=== PATIENT | female | born 1970 | race Two or more races ===

== ENCOUNTER → 2018-03-09 | Outpatient (CLI) | payer BC ==
--- NOTE | 2018-03-09 16:42 | MR ---
EXAMINATION TYPE: MR cervical spine wo/w con DATE OF EXAM: 03/09/2018 COMPARISON: None HISTORY: Myelopathy, numbness in extremities TECHNIQUE: Multiplanar, multisequence images of the cervical spine were acquired utilizing 7.5 mL intravenous Ga davist gadolinium contrast. Diffusion weighted imaging was performed. C2-C3: No evidence for degenerative disc disease. No disc bulge/herniation or protrusion. No Canal stenosis. Foramina are patent bilaterally. C3-C4: No significant foraminal encroachment. Posterior disc bulge causes mild anterior mass effect o n the thecal sac and possibly contacting the anterior cervical cord, mild to moderate central canal s tenosis. C4-C5: There is moderate central canal stenosis. Posterior extension endplate disc complex contacts a nterior cervical cord. Hypertrophic changes cause bilateral foraminal encroachment. C5-C6: Moderate to severe central canal stenosis. Posterior extension endplate disc complex causes ma ss effect on the cervical cord, hypertrophic changes cause bilateral foraminal encroachment. C6-C7: Posterior extension of endplate disc complex results in anterior mass effect on the thecal sac , posterior disc bulges broad-based and there is moderate to severe central canal stenosis. Bilateral foraminal encroachment are present due to bilateral hypertrophic changes. C7-T1: No evidence for degenerative disc disease. No disc bulge/herniation or protrusion. No Canal stenosis. Foramina are patent bilaterally. Cervical segments are intact. There is multilevel spondylosis. Ankylosis is present at C2-3 anteriorl y, there may be segmentation anomaly. Cervical vertebral bodies show preserved height. Cervical spina l cord is of normal signal. Craniovertebral junction relationships are within normal limits. There is anatomic alignment. Multilevel spondylosis is present. Loss of disc height signal is greatest at C 5-6 and C6-7 with associated endplate discogenic marrow signal change. Susceptibility artifact is pre sent posterior to the C1, C2, C3 vertebral bodies compatible with patient's history of prior surgery. No abnormal enhancement following contrast administration. IMPRESSION: Multilevel spinal stenosis, degenerative disc disease. Postop changes. Multilevel foraminal encroachm ent.
== END | disposition home or self-care (01) ==
LOC: RADMRIMAIN 14:59
PROVIDERS: ATTEND Psychiatry & Neurology Neurology
DX: M48.02 Spinal stenosis, cervical region (principal); M50.00 Cervical disc disorder with myelopathy, unspecified cervical region; Z98.890 Other specified postprocedural states
CPT/HCPCS: 72156; A9581

== ENCOUNTER → 2020-07-29 | Outpatient (CLI) | payer BC ==
--- NOTE | 2020-07-30 04:09 | MR ---
EXAMINATION TYPE: MR cervical spine wo/w con DATE OF EXAM: 07/29/2020 COMPARISON: 03/09/2018 HISTORY: Dizziness, bilateral parasthesias, gait imbalance/ falls. CONTRAST: Standard multiplanar, multisequence MRI departmental protocol utilizing 7.5 mL intravenous Gadavist g adolinium contrast. The cervical vertebra have normal alignment. There is decreased signal in the disks from C3 to T1. Th ere is small posterior disc herniations at C4-5 C5-6 and C6-7. There is also some facet arthropathy. There is resultant 6 mm spinal stenosis at C6-7 which is the narrowest point. The canal measures 6.5 mm at C5-6 and 7.5 mm at C4-5. There is hypertrophic anterior bridging osteophyte at C2-3. There is a nterior osteophyte formation at C5-6 and C6-7. Cervical spinal cord shows no edema. The contrast imag es show no pathologic enhancement. Brainstem is intact. There is no evidence of cervical paraspinal m ass. IMPRESSION: Multilevel spondylotic changes with mild posterior disc herniations and facet arthropathy. Mild multi level cervical spinal stenosis without change compared to old exam.
== END | disposition home or self-care (01) ==
LOC: RADMRIMAIN 19:23
PROVIDERS: ATTEND Psychiatry & Neurology Neurology
DX: M48.02 Spinal stenosis, cervical region (principal); M12.9 Arthropathy, unspecified; R42 Dizziness and giddiness; R26.89 Other abnormalities of gait and mobility
CPT/HCPCS: 72156; A9585

== ENCOUNTER → 2020-09-02 | Outpatient (CLI) | payer BC ==
--- NOTE | 2020-09-02 15:38 | XR ---
EXAMINATION TYPE: XR shoulder complete RT DATE OF EXAM: 09/02/2020 COMPARISON: NONE HISTORY: Pain TECHNIQUE: Shoulder examined in 3 images FINDINGS: The humeral head articulates with the glenoid. The acromio-clavicular junction is normal. No acute fractures or dislocations are evident. A follow up study can be performed 7-10 days from acute trauma for continued pain. IMPRESSION: 1. Normal three-view right Shoulder
== END | disposition home or self-care (01) ==
LOC: RADXRMAIN 15:20
PROVIDERS: ATTEND Internal Medicine
DX: M25.511 Pain in right shoulder (principal)

== ENCOUNTER → 2021-05-04 | Outpatient (CLI) | payer BC ==
[2021-05-04 11:29] LABS: Glucose 2 Hour 133 mg/dL
[2021-05-04 12:17] LABS: Protein, Total 7.8 g/dL (6.2-8.2)
[2021-05-05 14:27] LABS: Albumin 4.41 g/dL (3.80-4.90); Gamma Globulin 1.59 g/dL (0.70-1.50)
== END | disposition home or self-care (01) ==
LOC: LABWHC1 08:29
PROVIDERS: ATTEND Psychiatry & Neurology Neurology
DX: G62.9 Polyneuropathy, unspecified (principal)
CPT/HCPCS: 36415; 82164; 82607; 82947; 82950; 84165; 86038; 86039; 86235; 86334

== ENCOUNTER → 2021-05-12 | Outpatient (CLI) | payer BC ==
[2021-05-12 22:43] LABS: Anti-DNA, DS unit <1.0 IU/mL; DNA Double-Stranded NEGATIVE (NEGATIVE)
== END | disposition home or self-care (01) ==
LOC: LABWHC1 08:52
PROVIDERS: ATTEND Psychiatry & Neurology Neurology
DX: R20.2 Paresthesia of skin (principal)
CPT/HCPCS: 36415; 86225

== ENCOUNTER → 2021-11-08 | Outpatient (CLI) | payer BC ==
[2021-11-08 15:02] LABS: T4, Free (Free Thyroxine) 0.76 ng/dL (0.800-1.800)
== END | disposition home or self-care (01) ==
LOC: LABWHC1 08:14
PROVIDERS: ATTEND Nurse Practitioner Family
DX: R53.83 Other fatigue (principal); R41.3 Other amnesia
CPT/HCPCS: 36415; 82306; 82607; 84439; 84443; 84481

== ENCOUNTER → 2022-03-22 | Outpatient (CLI) | payer BC ==
[2022-03-22 10:25] LABS: T4, Free (Free Thyroxine) 0.83 ng/dL (0.78-2.19)
--- NOTE | 2022-03-22 17:39 | BD ---
EXAMINATION TYPE: Axial Bone Density DATE OF EXAM: 03/22/2022 COMPARISON: NONE CLINICAL HISTORY: 51 years year old Female. ICD-10 CODE: M85.8 OTHER DISORDER OF BONE DENSITY AND ST RUCTURE Height: 65.5 IN Weight: 165 LBS FRAX RISK QUESTIONS: History of Fracture in Adulthood: NECK FX AGE 23 Secondary Osteoporosis: 3. Menopause before 45: AGE 41 Current Tobacco Use: YES RISK FACTORS HISTORY OF: Family History of Osteoporosis: YES MOTHER Active: YES Postmenopausal woman: AGE 41 Frequent falls: YES LIGHTHEADED MEDICATIONS: Additional Medications: BUSPIRONE, LEXAPRO, CHOLESTEROL MED, QULIPTA, EXAM MEASUREMENTS: Bone mineral densitometry was performed using the Tape TV System. Bone mineral density as measured about the Lumbar spine is: ----- L1-L4(G/cm2): 1.422 T Score Values are as follows: ----- L1: 1.6 ----- L2: 2.4 ----- L3: 1.7 ----- L4: 2.3 ----- L1-L4: 2.0 Bone mineral density BASELINE Bone mineral density about the R hip (g/cm2): 0.882 Bone mineral density about the L hip (g/cm2): 0.865 T Score values are as follows: -----R Neck: -1.1 -----L Neck: -1.2 -----R Total: -0.2 -----L Total: 0.0 Bone mineral density BASELINE FRAX%s: The graph provided illustrates a 9.7 chance for a major osteoporotic fx and a 1.1 chance for the hips probability for fx in 10 years time. IMPRESSION: Osteopenia (T Score between -2.5 and -1). There is slightly increased risk of fracture and the patient may be considered for treatment. Re-Screen 2-5 years. NOTE: T-SCORE=SD OF THE YOUNG ADULT MEAN.
== END | disposition home or self-care (01) ==
LOC: RADBDWWP 08:40
PROVIDERS: ATTEND Psychiatry & Neurology Neurology
DX: M85.80 Other specified disorders of bone density and structure, unspecified site (principal); R94.6 Abnormal results of thyroid function studies; E55.9 Vitamin D deficiency, unspecified; R79.89 Other specified abnormal findings of blood chemistry
CPT/HCPCS: 77080; 82306; 82607; 84439; 84443; 84481

== ENCOUNTER 2022-04-15 08:52 | Day surgery (SDC) | payer BC ==
[~2022-04-15 08:52] MED LIST: LACTATED RINGERS 1,000 ML IV SCH
[2022-04-15 09:20] VITALS: TEMP 97.6
[2022-04-15] MEDS ORDERED: PROPOFOL 10 MG/ML 20 ML VIAL IV ONE (10:32)
--- NOTE | 2022-04-15 10:49 | P.PCN ---
Date of Procedure: 04/15/22 Procedure(s) Performed: BRIEF HISTORY: Patient is a 52-year-old pleasant white female scheduled for an elective colonoscopy as a part of evaluation of positive cologuard/ screening for colon cancer PROCEDURE PERFORMED: Colonoscopy with snare polypectomy. PREOPERATIVE DIAGNOSIS: Positive cologuard/screening for colon cancer. IV sedation per Anesthesia. PROCEDURE: After informed consent was obtained, the patient, was brought into the endoscopy unit. IV sedation was administered by Anesthesia under continuous monitoring. Digital rectal examination was normal. Initially the Olympus CF-160 flexible video colonoscope was then inserted in the rectum, gradually advanced into the cecum without any difficulty. Careful examination was performed as the scope was gradually being withdrawn. Ileocecal valve and the appendiceal orifice were visualized and appeared normal. Prep was excellent. Mucosa of the cecum, ascending colon, transverse colon, appeared normal. The descending colon at 50 cm from anal was there was a 1 cm pegylated polyp removed by snare polypectomy. Rest of the descending colon, sigmoid colon, and rectum appeared normal. Retroflexion was performed in the rectum and no lesions were seen. The patient tolerated the procedure well. IMPRESSION: 1 cm descending colon polyp status post polypectomy Rest of the colon appeared normal. Recommendations: Findings of this examination were discussed with the patient as well as a family. She was advised to follow with the biopsy results. If the biopsy results adenoma she can have a repeat colonoscopy in 3 years.
[2022-04-15 11:12] VITALS: BP 94/62; RESP 12
[2022-04-15 11:29] VITALS: PULSE 62
== END 2022-04-15 11:33 | disposition home or self-care (01) ==
LOC: ORWHC2ENDO 08:52
PROVIDERS: ATTEND Internal Medicine Gastroenterology
DX: Z12.11 Encounter for screening for malignant neoplasm of colon (principal); D12.4 Benign neoplasm of descending colon; E78.5 Hyperlipidemia, unspecified; F12.90 Cannabis use, unspecified, uncomplicated; M54.9 Dorsalgia, unspecified; F39 Unspecified mood [affective] disorder; K21.9 Gastro-esophageal reflux disease without esophagitis; Z79.899 Other long term (current) drug therapy; Z98.890 Other specified postprocedural states
CPT/HCPCS: 88305; 45385; J2704

== ENCOUNTER → 2023-09-26 | Outpatient (CLI) | payer OTHER ==
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
== END | disposition home or self-care (01) ==
LOC: RADCTMAIN 12:02
PROVIDERS: ATTEND Neurological Surgery
DX: M47.812 Spondylosis without myelopathy or radiculopathy, cervical region (principal); S12.191A Other nondisplaced fracture of second cervical vertebra, initial encounter for closed fracture; M50.30 Other cervical disc degeneration, unspecified cervical region; X58.XXXA Exposure to other specified factors, initial encounter
CPT/HCPCS: 72125

== ENCOUNTER → 2024-02-01 | Outpatient (CLI) | payer OTHER, BC ==
--- NOTE | 2024-02-01 12:08 | XR ---
EXAMINATION TYPE: XR cervical spine 3 views limited DATE OF EXAM: 02/01/2024 Comparison: CT 09/26/2023 Clinical History: 53-year-old female, postop follow-up, [id number] ARTHRODESIS Findings: Postoperative changes with surgical wires along the posterior elements which demonstrate mature bony ankylosis across C1-C3 levels. Interbody ankylosis also likely present. There is also ACDF from C4 through C7 levels. Hypertrophic facet arthropathy between C3 and C4. There is anterior endplate spondylosis at C7-T1. No garcia malalignment is seen. Impression: 1. Previous fixation and ankylosis across C1-C3. 2. Interval ACDF C4-C7 ACDF. No evident complication. 3. Preserved alignment.
== END | disposition home or self-care (01) ==
LOC: RADXRYALE 08:42
PROVIDERS: ATTEND Neurological Surgery
DX: Z98.1 Arthrodesis status (principal)
CPT/HCPCS: 72040

== ENCOUNTER → 2024-09-18 | Outpatient (CLI) | payer OTHER, BC ==
--- NOTE | 2024-09-18 11:17 | XR ---
EXAMINATION TYPE: XR lumbar spine 2 or 3V DATE OF EXAM: 09/18/2024 CLINICAL HISTORY: pain, arthrodesis status TECHNIQUE: Three views of the lumbar spine are submitted. COMPARISON: None. FINDINGS: Postsurgical changes with bilateral pedicle screws and rods through involving L3-L5 with anterior fus ion changes involving disc fusion hardware at these levels. There is a single left pedicular screw at the L4 level. Hardware appears intact. The L4-L5 anterior discs fusion hardware is eccentric to the right. There are 5 lumbar type vertebral bodies identified. The lumbar spine shows satisfactory alig nment without evidence of acute fracture or dislocation. Vertebral body heights are within normal mancera its. Disc space narrowing with endplate sclerosis at L5-S1. Lower lumbar spine multilevel facet art hropathy. Possible 6 mm gallstone. Atherosclerotic calcification of the aorta. Surgical clips within the bilateral pelvis. IMPRESSION: 1. No acute fracture or dislocation is seen in the lumbar spine. 2. Post surgical changes are anterior and posterior cervical fusion L3-L5. Hardware appears intact. 3. Degenerative disc disease at L5-S1. [facility], , 09/18/2024 11:15 AM
== END | disposition home or self-care (01) ==
LOC: RADXRMAIN 10:34
PROVIDERS: ATTEND Neurological Surgery
DX: M51.372 Other intervertebral disc degeneration, lumbosacral region with discogenic back pain and lower extremity pain (principal); Z98.1 Arthrodesis status; M43.22 Fusion of spine, cervical region; Z98.890 Other specified postprocedural states
CPT/HCPCS: 72100

== ENCOUNTER → 2024-09-30 | Outpatient (CLI) | payer BC ==
--- NOTE | 2024-09-30 09:30 | US ---
EXAMINATION TYPE: US abdomen limited DATE OF EXAM: 09/30/2024 COMPARISON: X-ray 2024 CLINICAL INDICATION: Female, 54 years old with history of K80.20 CALCULUS OF GALLBLADDER W/O CHOLECYS TITIS W; Possible gallstone seen on recent x-ray TECHNIQUE: Grayscale and color Doppler imaging of the right upper quadrant was performed. FINDINGS: EXAM MEASUREMENTS: Liver Length: 14.0 cm Gallbladder Wall: 0.2 cm CBD: 0.3 cm Right Kidney: 10.2 x 5.0 x 5.0 cm Pancreas: Suboptimal visualization of the pancreatic body and tail due to bowel gas shadowing. Remai nder shows no gross abnormality. Liver: wnl Gallbladder: wnl Evidence for sonographic Reinoso's sign: no CBD: visualized portions wnl, limited by pancreas head due to overlying bowel gas Right Kidney: wnl IMPRESSION: No gallstones or biliary ductal dilatation. [facility], Workstation: [email or web address], 09/30/2024 9:28 AM
== END | disposition home or self-care (01) ==
LOC: RADUSWWP 07:59
PROVIDERS: ATTEND Internal Medicine
DX: K80.20 Calculus of gallbladder without cholecystitis without obstruction (principal)
CPT/HCPCS: 76705

== ENCOUNTER → 2024-12-23 | Outpatient (CLI) | payer BC ==
--- NOTE | 2024-12-23 17:28 | XR ---
EXAMINATION TYPE: XR lumbar spine 2 or 3V DATE OF EXAM: 12/23/2024 10:03 AM COMPARISON: None. CLINICAL INDICATION: Female, 54 years old with history of Z98.1 ARTHRODESIS STATUS, pain TECHNIQUE: 3 view(s) obtained. FINDINGS: There are 6 lumbar-type vertebral bodies. Lumbar fusion is present L3-L5. Disc spacer present L3-4, L 4-S1. There is a 1.3 cm calcification in the mid left ureteral course to the left of midline. Large uretera l stone could be considered. IMPRESSION: 1. 1.3 cm left ureteral stone. 2. Postsurgical changes lower lumbar spine [facility], Workstation: [facility], 12/23/2024 5:25 PM
== END | disposition home or self-care (01) ==
LOC: RADXRMAIN 09:42
PROVIDERS: ATTEND Neurological Surgery
DX: N20.1 Calculus of ureter (principal); Z98.1 Arthrodesis status
CPT/HCPCS: 72100